=== PATIENT | female | born 1965 | race Caucasian/White ===

== ENCOUNTER 2019-03-13 20:35 | Emergency (ER) | payer BC ==
[~2019-03-13] VITALS: Ht 162.6 cm; Wt 72.6 kg
[2019-03-13 20:44] VITALS: BP 161/85
--- NOTE | 2019-03-13 20:53 | NUR ---
AMBULATED TO ER BED 1
--- NOTE | 2019-03-13 21:15 | NUR ---
PT BIB FAMILY C/O CHEST PAIN. PT WAS REFERRED TO ER FROM URGENT CLINIC DUE TO ABNORMAL EKG. PT REPORTS INTERMITENT NON-RADIATING MIDSTERNAL CHEST TIGHTNESS AT 2/10, THAT INCREASES WITH STRESS. PT RECIEVED 60MG TORADOL AT URGENT CARE AND REPORTS RELIEF FROM PAIN. PT REPORTS HAVING INTERMITENT NAUSEA AND FAINTNESS W/ CP, BUT DENIES IT AT THIS TIME. 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 VSS. ER MD TO SEE PT. PMH:HTN, GERD RX:OMEPRAZOLE
[2019-03-13 22:18] LABS: BASOPHILS # (AUTO) 0.1 K/uL (0.00-0.22); BASOPHILS % (AUTO) 1.3 % (0.0-2.0); EOSINOPHILS # (AUTO) 0.2 K/uL (0-0.4); EOSINOPHILS % (AUTO) 2.9 % (0.0-4.0); HEMATOCRIT 41.6 % (36-48); HEMOGLOBIN 13.6 g/dL (12.0-16.0); LYMPHOCYTES % (AUTO) 48.9 % (20.5-51.1); MEAN CORPUSCULAR HEMOGLOBIN 31 pg (27-31); MEAN CORPUSCULAR HGB CONC 33 g/dL (33-37); MEAN CORPUSCULAR VOLUME 93.8 fL (80-94); MONOCYTES # (AUTO) 0.5 K/uL (0.8-1.0); MONOCYTES % (AUTO) 7.7 % (1.7-9.3); NEUTROPHILS # (AUTO) 2.4 K/uL (1.8-7.7); NEUTROPHILS % (AUTO) 39.2 % (42.2-75.2); PLATELET COUNT (AUTO) 197 K/uL (140-450); RED BLOOD CELL COUNT(AUTO) 4.44 MIL/uL (4.20-5.40); WHITE BLOOD COUNT (AUTO) 6.1 K/uL (4.8-10.8)
[2019-03-13] MEDS ORDERED: LORazepam 2 MG/ML VIAL IVP ONE (22:30)
[2019-03-13 22:33] LABS: ANION GAP 13.7 (8-16); CARBON DIOXIDE 27.1 mmol/L (21-32); CREATININE 0.6 mg/dL (0.6-1.3); POTASSIUM 3.8 mmol/L (3.5-5.1)
[2019-03-13 22:39] LABS: TOTAL BILIRUBIN 0.3 mg/dL (0.0-1.0)
[2019-03-13 22:52] LABS: PROTHROMBIN TIME 9.8 secs (10.8-13.4)
[2019-03-13 23:43] VITALS: BP 116/62
--- NOTE | 2019-03-13 23:43 | NUR ---
Patient discharged with v/s stable. She states relief with no pain or anxiety at this time. Written and verbal after care instructions given and explained. Patient alert, oriented and verbalized understanding of instructions. Ambulatory with steady gait. All questions addressed prior to discharge. ID band removed. Patient advised to follow up with PMD and when to return to ER. Rx of Naprosyn and Ativan given. Patient educated on indication of medication including possible reaction and side effects. Opportunity to ask questions provided and answered.
== END 2019-03-13 23:43 | disposition home or self-care (01) ==
LOC: MED 20:35
DX: R07.89 Other chest pain (principal); F41.9 Anxiety disorder, unspecified; I10 Essential (primary) hypertension; Z88.6 Allergy status to analgesic agent
CPT/HCPCS: 36415; 71045; 80053; 83880; 84484; 85025; 85610; 85730; 93005; 96374; 99284; J2060